=== PATIENT | female | born 1990 | race Caucasian/White ===

== ENCOUNTER 2020-12-23 10:56 | Emergency (ER) | payer OTHER ==
[2020-12-23] MEDS ORDERED: DIPHTH,PERTUSS(ACELL),TET 0.5 ML DISP.SYRIN IM ONE ×2 (11:04→11:06)
[2020-12-23 11:05] VITALS: BP 113/70; PULSE 56; TEMP 98; BMI 26.5
== END 2020-12-23 11:55 | disposition home or self-care (01) ==
LOC: FER 10:56
PROC: 3E0234Z Introduction of Serum, Toxoid and Vaccine into Muscle, Percutaneous Approach (ICD-10-PCS; principal; 2020-12-23)
DX: S67.192A Crushing injury of right middle finger, initial encounter (principal); S65.512A Laceration of blood vessel of right middle finger, initial encounter
CPT/HCPCS: 73140-TC-RT-FY; 90715; 99284-25